=== PATIENT | female | born 1945 | race Caucasian/White ===

== ENCOUNTER 2017-03-12 10:37 | Emergency (ER) | payer OTHER ==
[~2017-03-12 10:37] MED LIST: SODIUM CHLORIDE 0.9% FLUSH 10 ML SOL IV PRN
[2017-03-12] MEDS ORDERED: INSULIN HUMAN REGULAR 100 U/ML SOL IV ONE (10:48)
[2017-03-12] MEDS ORDERED: SODIUM CHLORIDE 0.9% 1000 ML SOL IV SCH (11:00)
[2017-03-12] MEDS ORDERED: LABETALOL HYDROCHLORIDE 5 MG/ML SOL IV ONE ×2 (11:09→11:12)
[2017-03-12 11:12] LABS: BASOPHILS % (AUTO) 0 % (0-3); EOSINOPHILS % (AUTO) 0 % (0-9); HEMATOCRIT 45 % (35-47); MEAN CORPUSCULAR HGB CONC 33.6 gm/dl (32.0-36.0); MEAN CORPUSCULAR VOLUME 92 fL (81-99); NEUTROPHILS % (AUTO) 92.7 % (37-80)
[2017-03-12] MEDS ORDERED: INSULIN HUMAN REGULAR 100 U/ML SOL ONE (11:14)
[2017-03-12] MEDS ORDERED: NOVOLOG FLEXPEN SC SCH (11:15)
[2017-03-12 11:24] LABS: ALBUMIN 3.7 gm/dl (3.4-5.0); CALCIUM 8.8 mg/dl (8.5-10.1); POTASSIUM 3.7 mMol/L (3.5-5.1)
[2017-03-12] MEDS ORDERED: LORAZEPAM 2 MG/ML SOL IV ONE (11:35)
[2017-03-12] MEDS ORDERED: HALOPERIDOL LACTATE 5 MG/ML SOL IM ONE (11:35)
[2017-03-12] MEDS ORDERED: HALOPERIDOL LACTATE 5 MG/ML SOL ONE (11:37)
[2017-03-12] MEDS ORDERED: LORAZEPAM 2 MG/ML SOL ONE (11:38)
[2017-03-12] MEDS ORDERED: MIDAZOLAM 2 MG/2 ML SOL IV ONE (11:59)
[2017-03-12] MEDS ORDERED: MIDAZOLAM 2 MG/2 ML SOL ONE (12:01)
[2017-03-12 12:22] LABS: APPEARANCE,URINE Cloudy; BILIRUBIN,URINE NEGATIVE (NEGATIVE); COLOR,URINE Light yellow; GLUCOSE, URINE (UA) 3+ (NEGATIVE); KETONES,URINE 2+ (NEGATIVE); LEUKOCYTE ESTERASE ,URINE NEGATIVE (NEGATIVE); NITRATE,URINE NEGATIVE (NEGATIVE); OCCULT BLOOD,URINE 3+ (NEG-TRACE); UROBILINOGEN,URINE 0.2 (0.2-1.0 EU)
[2017-03-12 12:53] VITALS: TEMP 101.2
[2017-03-12] MEDS ORDERED: CEFTRIAXONE 1 GM PDS 1 GM in SODIUM CHLORIDE 0.9% 100 ML 100 ML IV ONE (12:56)
[2017-03-12] MEDS ORDERED: CEFTRIAXONE 1 GM PDS ONE (13:13)
[2017-03-12] MEDS ORDERED: ENOXAPARIN 100 MG SOL SC ONE (13:14)
[2017-03-12] MEDS ORDERED: ENOXAPARIN 100 MG SOL SC SCH (13:15)
[2017-03-12] MEDS ORDERED: ACETAMINOPHEN 650 MG SUP PR ONE ×2 (14:00→14:01)
[2017-03-12 14:29] LABS: APPEARANCE,URINE Clear; BILIRUBIN,URINE NEGATIVE (NEGATIVE); COLOR,URINE Yellow; GLUCOSE, URINE (UA) 2+ (NEGATIVE); KETONES,URINE 3+ (NEGATIVE); LEUKOCYTE ESTERASE ,URINE NEGATIVE (NEGATIVE); NITRATE,URINE NEGATIVE (NEGATIVE); OCCULT BLOOD,URINE 3+ (NEG-TRACE); UROBILINOGEN,URINE 0.2 (0.2-1.0 EU)
[2017-03-12 15:42] VITALS: BP 188/72; PULSE 114; RESP 24; O2SAT 99
== END 2017-03-12 14:40 | disposition short-term general hospital (02) | DRG 280 ==
LOC: ED 10:37
DX: I21.4 Non-ST elevation (NSTEMI) myocardial infarction (principal); A41.9 Sepsis, unspecified organism; M62.82 Rhabdomyolysis; E11.65 Type 2 diabetes mellitus with hyperglycemia; Z79.84 Long term (current) use of oral hypoglycemic drugs; W19.XXXA Unspecified fall, initial encounter
CPT/HCPCS: 36415; 70450; 71010; 80053; 81001; 81003; 82550; 82962; 84484; 85025; 87040; 93005; 99285; J0696; J1630; J1650; J1815; J2060; J2250

== ENCOUNTER 2018-09-13 11:01 | Day surgery (SDC) | payer OTHER ==
[2018-09-13] MEDS: PHENYLEPHRINE HCL 10% OPHTHAL SOL ONE ×3 (11:25→11:31)
[2018-09-13] MEDS ORDERED: KETOROLAC/HOME 0.5% SOL LEFTEYE ONE ×3 (11:25→11:31)
[2018-09-13] MEDS: TROPICAMIDE 1% OPHTH SOL ONE ×3 (11:25→11:31)
[2018-09-13] MEDS: CYCLOPENTOLATE 1% SOL ONE ×3 (11:25→11:31)
[2018-09-13] MEDS ORDERED: MOXIFLOXACIN-HOME SOL LEFTEYE ONE ×2 (11:25→11:28)
[2018-09-13] MEDS: TETRACAINE HCL 0.5 % 1 DROP SOL ONE ×2 (11:31→12:28)
[2018-09-13] MEDS ORDERED: MIDAZOLAM 2 MG/2 ML SOL ONE (11:57)
[2018-09-13] MEDS ORDERED: FENTANYL 100MCG/2ML SOL ONE (11:57)
[2018-09-13] MEDS ORDERED: ACETAZOLAMIDE 250 MG PO ONE ×2 (12:11→12:48)
[2018-09-13] MEDS ORDERED: BSS W/ 0.5 MG P.F. EPI 1 BOTTLE ONE (12:21)
[2018-09-13] MEDS ORDERED: LIDOCAINE HCL 2% MPF 10 ML SOL ONE (12:21)
[2018-09-13] MEDS ORDERED: POVIDONE IODINE 5% SOL ONE (12:21)
[2018-09-13 12:51] VITALS: BP 133/76; PULSE 54; RESP 20; TEMP 97.7; O2SAT 93
== END 2018-09-13 13:09 | disposition home or self-care (01) | DRG 125 ==
LOC: SURG 11:01
PROVIDERS: ATTEND Ophthalmology
DX: H25.89 Other age-related cataract (principal); E11.9 Type 2 diabetes mellitus without complications
CPT/HCPCS: J2250; J3010; A9270-GY